=== PATIENT | female | born 1960 | race Caucasian/White ===

== ENCOUNTER → 2024-11-25 08:33 | Outpatient (REF) | payer MEDICARE, OTHER, SELFPAY | LOC: RAD 08:33 | PROVIDERS: ATTENDING PHYSICIAN Student in an Organized Health Care Education/Training Program; FAMILY PHYSICIAN Family Medicine | DX: M25.542 Pain in joints of left hand (principal); M25.541 Pain in joints of right hand; M06.09 Rheumatoid arthritis without rheumatoid factor, multiple sites; M79.642 Pain in left hand | CPT/HCPCS: 76882 ==